=== PATIENT | female | born 1975 | race Caucasian/White ===

== ENCOUNTER → 2018-12-25 15:48 | Outpatient (CLI) | payer OTHER, SELFPAY ==
[2018-12-31 15:06] LABS: HPV APTIMA, High Risk Negative (Negative)
== END ==
PROVIDERS: Family Provider Family Medicine; PCP Family Medicine; Referring Provider Obstetrics & Gynecology; Visit Provider Obstetrics & Gynecology
DX: Z12.4 Encounter for screening for malignant neoplasm of cervix (principal)
CPT/HCPCS: 87624; 88175; G0145

== ENCOUNTER → 2019-02-07 10:13 | Outpatient (CLI) | payer OTHER, SELFPAY ==
--- NOTE | 2019-02-07 10:16 | BI_ITS ---
MAMMOGRAPHY - BILATERAL SCREENING REASON FOR EXAM: Female, 43 years old. Routine annual screening examination. PERTINENT HISTORY: Grandmother with breast cancer. Aunt with breast cancer. Prior right ultrasound-guided breast biopsy. TECHNIQUE: Digital bilateral breast cameron (3D mammographic acquisition) in the CC and MLO projections. 2-D mediolateral oblique (MLO) and craniocaudad (CC) views of both breasts were obtained. CAD: Full Field Digital Mammography with Computer Added Detection was performed. COMPARISON: Comparison is made with the prior examination dated October 27, 2014. FINDINGS: Breast Composition: The breasts are extremely dense, which lowers the sensitivity of mammography. There are no dominant masses or suspicious calcifications. Stable appearance of the 6 mm well-defined nodular density in the upper outer aspect of the right breast. A central notch is seen within it and this most likely represents a small benign appearing lymph node. No other significant abnormalities are identified. There has been no significant change since the prior study. BI/SCREEN MAMM (CAD) W/CAMERON BILAT IMPRESSION: Stable bilateral screening mammogram. Yearly follow-up mammogram recommended. (A) ASSESSMENT CATEGORY: BIRADS Category 2: Benign. A letter regarding these results will be sent to the patient by the facility within 30 days. Approximately 10% of breast cancers are not detected by mammography. A normal mammogram should not delay biopsy of a clinically suspicious abnormality. [id number] Electronically Signed: Luis Eduardo Haynes, at 8:38 EDT , Service support ,
== END ==
PROVIDERS: Family Provider Preventive Medicine Occupational Medicine; PCP Preventive Medicine Occupational Medicine; Referring Provider Obstetrics & Gynecology; Visit Provider Obstetrics & Gynecology
DX: Z12.31 Encounter for screening mammogram for malignant neoplasm of breast (principal)
CPT/HCPCS: 77063; 77067

== ENCOUNTER → 2019-09-16 12:39 | Outpatient (CLI) | payer OTHER, SELFPAY | PROVIDERS: PCP Preventive Medicine Occupational Medicine; Referring Provider Obstetrics & Gynecology; Visit Provider Obstetrics & Gynecology | DX: Z53.9 Procedure and treatment not carried out, unspecified reason (principal) ==

== ENCOUNTER 2019-10-08 09:02 | Day surgery (SDC) | payer OTHER, SELFPAY ==
[2019-10-02 11:07] LABS: Hematocrit 39.9 % (37-47); Hemoglobin 13.5 g/dL (12.0-15.0); Mean Corp Hgb Conc 33.8 g/dL (32-36); Mean Corpuscular Volume 94.5 fL (81-99); Mean Platelet Vol. 11.1 fl (6.2-12.0); Platelet Count 230 K/mm3 (150-450); RBC Distribution Width CV 12.3 % (11.6-14.6); RBC Distribution Width SD 42.3 fl (35.1-43.9); Red Blood Count 4.22 M/mm3 (4.2-5.4); White Blood Count 6.2 K/mm3 (4.4-11.0)
[2019-10-02 11:14] LABS: Prothrombin Time (Protime)PT. 12.6 SECONDS (11.7-14.9)
[2019-10-02 11:15] LABS: Partial Thromboplast Time 26.7 Seconds (24.1-36.2)
--- NOTE | 2019-10-08 07:33 | PCM.HPOB.BLA ---
- Problem List (1) Abnormal uterine bleeding (AUB) Status: Acute History and Physical Date of Admission: 10/08/19 Date: 10/02/2019 Name: GUERLINE PAUL Age: 44 Date of : 1975 HISTORY OF PRESENT ILLNESS: On 10/02/2019, Guerline Paul, a 44 year old female 1 0 1 0 1, presented for: -- Pre-Op -- Guerline is here for pre-op appt. PAT packet provided and consents are signed. Will discuss all further with Dr CRAIG. LMT as above. hx frequent, irregular menses in setting of cervical vs. endometrial polyp noted on US. jayesh ALLERGIES: NKDA MEDICATIONS HISTORY: Patient is also takin. No Meds REVIEW OF SYSTEMS: GENERAL - Denies fever, or chills SKIN - Denies skin changes EYES - Denies visual changes EARS - Denies difficulty hearing NOSE - Denies nasal congestion or bleeding MOUTH - Denies sore throat or difficulty swallowing NECK - Denies pain or swelling RESPIRATORY - Denies shortness of breath or wheezing CARDIOVASCULAR - Denies palpitations or chest pain GASTROINTESTINAL - Denies nausea, vomiting, diarrhea, constipation GENITOURINARY - Irregular bleeding MUSCULOSKELETAL - Denies joint or muscle pain NEUROLOGICAL - Denies localized numbness or weakness PSYCHIATRIC - Denies depression or anxiety ENDOCRINE - Denies heat or cold intolerance, weight loss or gain HEMATO-IMMUNOLOGIC - Denies excesive bleeding with cuts PAST HISTORY: Breast/Ovarian/Colon Cancers - Aunt had Breast Cancer approximately age 60-70 Infections - Chicken pox childhood Illnesses - none Accidents - no injuries of consequence History of Abnormal PAPS - Denies Hospitalizations - Childbirth chest flushing; SURGICAL HISTORY: 1. Moose Teeth Removal, 1993 MENSTRUAL HISTORY: LMP Known?- DefiniteAmount/Duration - 3 days, Regularity - regular, Frequency - monthly days, LMP - 09/11/19, Age Onset Menarche - 13 PAST PREGNANCIES: Total Pregnancies - 2; Full Term Pregnancies - 1; Premature - 0; Abortions, Induced - 0; Abortions, Spontaneous - 1; Ectopics - 0; Multiple Births - 0; Living Children - 1 FAMILY HISTORY: Father - Ischemic heart disease; Aunt - Carcinoma of breast; MaternalAunt - Age 66, Carcinoma of breast; MaternalGrandparent - Ischemic heart disease; MaternalGrandparent - Type 2 Diabetes; PaternalGrandparent - Ischemic heart disease; SOCIAL HISTORY: Alcohol Use - drinks occasionally Smoking - occasional--advised to quit Diet - no particular diet Lifestyle - Exercise - active Seat Belt Use - always Employer - [employer] Job Description - shipping Illicit Drug Use - denies use of street drugs Sexual Activity - Residence - lives with Hours Worked - 40 hours per week Spouse-Sig Other Name - Audie Spouse-Sig Other Occupation - self-emp - escavating Children Name(s) - Carisa Control - condoms PHYSICAL EXAMINATION BP- 110/88 Sitting, Right arm, regular cuff Temp- 98.4 Taken Orally Weight- 162.00 lbs Height- 66.50 inch BMI:25.81 CONSTITUTIONAL - NAD, well nourished, and well developed SKIN - No rash, lesions, or ulcers HEENT - normocephalic, atraumatic, sclerae anicteric LYMPH NODES - Palpation of lymph nodes in neck and groins within normal limits LUNGS - CTA x2 without wheezes, crackles or rales CARDIAC - Regular rate and rhythm without rubs, murmurs, or gallops ABDOMEN - Without hepatosplenomegaly, distention, masses, rebound, or guarding; normal bowel sounds; no hernias EXTREMITIES - No edema or calf tenderness NEUROLOGICAL - normal gait, normal balance, normal motor PSYCHIATRIC - A and O to time, place, person, mood and affect PAP 2019 NILM US 01/2019 UTERUS: 10.2 x 5.4 x 5.1cm. subserous fibroids seen measures 1.3 x 1.4 x 1.1cm and 1 x 1.3 x 1.1cm. ENDOMETRIAL ECHO: 5.9mm. RIGHT OVARY: 3.1 x 3 x 3.1cm. complex cystic area seen measures 2 x 1.3 x 2.1cm. LEFT OVARY: 2.6 x 2.8 x 3.3cm. two simple cysts seen measures less then 1cm. BLADDER: No bladder masses visualized. FREE FLUID: NONE. OTHER PERTINENT FINDINGS: small nabothian cysts seen in cx. Subserous fibroids seen in uterus. Left paratubal vs paraovarian cyst seen measures 2.4 x 2 x 2.5cm. Complex cystic area seen right ovary. ASSESSMENT: PLAN BY DIAGNOSIS: 1. Irregular Menstruation, unspecified US findings reviewed - suspicious for cervical polyp Hysteroscopy, dilation and curettage with Symphion polypectomy. I also offered her endometrial ablation as this time with review of indications/risks/benefits/alternatives and pt opts to proceed Procedural consents, anticipated hospital course, recovery reviewed Preop labs pending Preop packet reviewed and given NPO @ [facility] prior to procedure Essential Procedure Criteria Procedure Essential: Yes Criteria Note: On 08/04/2019 the [facility] [place] of Health ([facility]) Public Order signed by [facility] Director Mary Kate Jung M.D., regarding the Management of Non-Essential Surgeries and Procedures for the purpose of preserving Personal Protective Equipment (PPE) and critical hospital capacity and resources within [place] went into effect as of 08/05/2019 at 5:00PM. According to the [facility] Public Order: This action will remain in full force and effect until the State of Emergency declared by the Governor no longer exists or the Director of the [facility] rescinds or modifies this Order.. This [facility] order stated all non-essential or elective surgeries and procedures that utilize PPE should be delayed unless there is undue risk to the current or future health of a patient. After reviewing the aforementioned [facility] Public Order and the patients clinical case, I have determined that the scheduled procedure meets the criteria to go forward. Risk to Patient if Procedure Delayed: Presence of severe symptoms causing an inability to perform ADL's
[2019-10-08 09:43] VITALS: BP 122/76; PULSE 66; RESP 14; TEMP 36.9; O2SAT 99; BMI 25.3
[2019-10-08 09:55] LABS: Internal QC Validated? YES +Cl - CLEAR BKGD; Pregnancy, Urine Negative Negative
[2019-10-08] MEDS: Lactated Ringers 1,000 ML 125 ML IV (10:03)
--- NOTE | 2019-10-08 10:25 | ECC_PTH ---
PATIENT: DAMON HOWARD LOC: [facility] [place] U#:[id number] AGE/SX: 44/F ROOM: RE10/08/[address]: Dr. Kellee Miller MD : 1975 BED: DIS: 10/08/2019 SPEC #: [id number] RECD: 10/08/19 13:15 STATUS: VAUGHN EDWARD #: [id number] RESHMA: 10/08/19 10:[address]: Kellee Ybarra DEPT: SURGICAL PATHOLOGY RECD BY: Bebo Avina ENTERED: 10/09/19 09:01 SP TYPE: ECC ABHISHEK DR: Dr. Freeman Holder DO Tissues: A - Endocervical B - Endometrium, NOS Procedures: Surgery Specimen Level IV HEADER OPERATION: Hysteroscopy, D & C Symphion, endocervical curettage, Maribel PRE-OP DIAGNOSIS: Irregular menstruation TISSUE SUBMITTED: A - Endocervical curettings, B - Endometrial curettings MICROSCOPIC DIAGNOSIS A. Endocervix, curettings: Fragments of secretory endometrium. See comment. B. Endometrium, curettings: Fragments of secretory endometrium. AM:deepthi 10/13/19 COMMENT A. Endocervical tissue is not represented in the biopsy. Clinical correlation is suggested. Case has been reviewed in consultation with Dr. Taveras who concurs with the above diagnosis. IDC:ANGEL MICROSCOPIC DESCRIPTION Slides are reviewed. GROSS DESCRIPTION A - Received in fixative is one container labeled with the patient's name and designated endocervical curettings. The specimen consists of multiple irregular fragments of woods mucoid tissue that in aggregate measure 2 x 0.2 x 0.1 cm. The specimen is totally submitted in one cassette. B - Received in fixative is one container labeled with the patient's name and designated endometrial curettings. The specimen consists of multiple fragments of woods, hemorrhagic soft tissue that in aggregate measure 5 x 3 x 0.3 cm. The entire specimen is submitted in one cassette. / ANGEL:deepthi 10/09/19 TC:5 CPT: 19465 x2
--- NOTE | 2019-10-08 10:56 | DCINST_ITS ---
Discharge Diet: No Restrictions Discharge Activity: Return to Normal Activity, May not drive while taking narcotic pain medications., May Shower, - - No tub bath for 2 weeks, do not put anything in the vagina for 2 weeks May resume sexual activity in: 4 weeks Call your doctor if you observe: Fever of 101 or Higher, Inability to urinate, Inability to have a bowel movement, Using more than one pad per hour, Shortness of breath, Chest pain, Calf discomfort, Uncontrolled pain Additional Instructions: Your procedure went as planned today with hysteroscopy (looking inside the uterus), dilation and curettage (shaving the uterine lining) and endometrial ablation (heating the uterine lining) to address abnormal bleeding. Permanent sterilization such as vasectomy or tubal ligation to prevent is advised. following endometrial ablation is high risk with potential life threatening complications for mother and baby due to scarring of the uterus. Allergies/Adverse Reactions: Allergies No Known Allergies Allergy (Verified 10/01/19 09:16) Medications to take at Discharge NK 07/30/19 Primary Care Physician: Freeman Holder DO [Primary Care Provider] - Test Results: Test results from this visit will be discussed in further detail at your follow- up appointment, if applicable. Please Follow Up With: Kellee Hammond MD When: 4 weeks
[2019-10-08] MEDS: Lubricating Jelly 60 GM Tube 30 GM TOPICAL (11:10)
[2019-10-08 12:17] VITALS: BP 115/85; BP 122/76; PULSE 70; RESP 14; TEMP 35.9; O2SAT 100
[2019-10-08 12:21] VITALS: BP 120/83; BP 122/76; PULSE 61; RESP 14; O2SAT 100
[2019-10-08 12:25] VITALS: BP 121/89; BP 122/76; PULSE 68; RESP 14; O2SAT 100
[2019-10-08 12:30] VITALS: BP 122/76; BP 132/91; PULSE 56; RESP 14; TEMP 36.3; O2SAT 100
[2019-10-08 13:32] VITALS: BP 122/76
--- NOTE | 2019-10-08 23:55 | PCM.OPRPT ---
Problem List (1) Abnormal uterine bleeding (AUB) Status: Acute Report of Operation Date of Procedure: 10/08/19 Pre-Operative Diagnosis: Abnormal uterine bleeding Post-Operative Diagnosis: Abnormal uterine bleeding Surgery/Procedure Performed:: Hysteroscopy, dilation and curettage, Maribel Endometrial ablation Description of Surgical Findings:: normal appearing uterus and tubal ostia bilaterally Type of Anesthesia:: Local MAC Anesthesiologist: Nigel Hudson Estimated Blood Loss (mL): 10 Description of Procedure: Patient was brought to the operating room and sign in performed. She was placed in the dorsal supine position and induced under MAC. She was repositioned into dorsolithotomy and examination under anesthesia performed. The perineum were was prepped and draped in sterile fashion. Straight catheterization of the bladder performed. A bivalve speculum was placed vaginally the cervix grasped at the anterior cervical lip using a single-tooth tenaculum. Paracervical block was performed using 1% lidocaine. The uterus sounded to 9 cm. The cervix was subsequently dilated and hysteroscopy performed with the Symphion system. An anterior wall polyp was noted and resected using the Symphion system. Sharp curettage was performed. Maribel endometrial ablation system was introduced into the uterine cavity, array expanded and cycle completed. The ablation array was compressed and the device removed. Hysteroscopy was again performed demonstrating global endometrial ablation. The procedure was complete. The hysteroscope was removed. The tenaculum was removed from the cervix and the tenaculum site hemostatic. Sponge counts were correct x2. The patient was awakened, transferred to the recovery room without complication and tolerated the procedure well. - Complications None - Admit VTE Documentation VTE Present on Admission: No VTE Mechan Device Prophylaxis: [facility] [place] [place] Pharm Prophylaxis ordered?: No
== END 2019-10-08 13:33 | disposition home or self-care (01) ==
LOC: SDC 09:03 → AC 09:04
PROVIDERS: Anesthesiology; PCP Preventive Medicine Occupational Medicine; Referring Provider Obstetrics & Gynecology; Visit Provider Obstetrics & Gynecology
PROC: 0UB98ZZ Excision of Uterus, Via Natural or Artificial Opening Endoscopic (ICD-10-PCS; CPT 58558; principal; 2019-10-08 10:10)
DX: N84.0 Polyp of corpus uteri (principal); N92.6 Irregular menstruation, unspecified; K58.9 Irritable bowel syndrome, unspecified; F17.200 Nicotine dependence, unspecified, uncomplicated
CPT/HCPCS: 58563; 36415; 81025; 85027; 85610; 85730; 86850; 86900; 86901; 87635; 88305; G2023; J7120; U0004

== ENCOUNTER → 2023-07-30 | Outpatient (CLI) | payer OTHER, SELFPAY ==
--- NOTE | 2023-07-30 16:00 | RAD_ITS ---
STUDY: X-RAY - RIGHT KNEE REASON FOR EXAM: Female, 48 years old. Right knee injury TECHNIQUE: 4 view(s) of the knee. COMPARISON: None. FINDINGS: Bone island noted within the distal femur. No evidence for acute fracture. No lytic destructive changes.. Normal visualized proximal tibia and fibula. Normal proximal tibiofibular articulation. Mildly narrowed at medial femorotibial compartment. Mildly narrowed lateral femorotibial compartment. Normal patellofemoral articulation. The soft tissue structures are unremarkable. RAD/Knee 4 or More Views IMPRESSION: Degenerative changes. No acute fracture or other significant bony pathology Electronically Signed: Austin Self MD at 16:57 EDT Reading Location ID and State: [facility] / [place] Tel , Service support ,
== END | disposition home or self-care (01) ==
LOC: MTRAD 15:56
PROVIDERS: PCP Family Medicine; Referring Provider Family Medicine; Visit Provider Family Medicine
DX: M25.561 Pain in right knee (principal); G89.29 Other chronic pain
CPT/HCPCS: 73564

== ENCOUNTER → 2023-08-01 | Outpatient (CLI) | payer OTHER, SELFPAY ==
[2023-08-01 10:17] LABS: Absolute Lymphocyte Count 1.93 X10^3/uL (0.83-4.51); Basophil# 0.06 X10^3/uL; Basophil% 1.1 % (0-1); Eosinophil# 0.08 X10^3/uL; Eosinophils% 1.4 % (0-5); Hematocrit 41.6 % (37-47); Hemoglobin 13.7 g/dL (12.0-15.0); Lymphocyte # 1.93 X10^3/ul (0.83-4.51); Lymphocyte % 34.9 % (19-41); Mean Corp Hgb Conc 32.9 g/dL (32-36); Mean Corpuscular Hgb 31.6 pg (27.0-32.0); Mean Corpuscular Volume 95.9 fL (81-99); Mean Platelet Vol. 10.7 fl (6.2-12.0); Monocyte# 0.46 X10^3/uL; Monocyte% 8.3 % (0-10); NRBC Flagged by Analyzer 0 % (0-5); Neutrophil # 2.99 X10^3/uL (2.7-7.7); Neutrophil % 54.1 % (47-70); Platelet Count 250 K/mm3 (150-450); RBC Distribution Width CV 12.3 % (11.6-14.6); RBC Distribution Width SD 43.6 fl (35.1-43.9); Red Blood Count 4.34 M/mm3 (4.2-5.4); White Blood Count 5.5 K/mm3 (4.4-11.0)
[2023-08-01 10:59] LABS: ALB/GLOB Ratio 0.9 RATIO (0.9-2.4); AST(SGOT) 13 U/L (15-37); Alanine Aminotransfer ALT/SGPT 27 U/L (13-56); Albumin, Serum 3.3 g/dL (3.2-5.0); Alkaline Phosphatase 68 U/L (45-117); Anion Gap 6 (5-15); BUN 9 mg/dL (7-18); BUN/Creat Ratio 10.8 RATIO (10-20); Calcium,Total 8.6 mg/dL (8.5-10.1); Chloride 106 mmol/L (98-107); Cholesterol 180 mg/dL (200); Creatinine, Serum 0.84 mg/dL (0.55-1.02); EST Glomerular Filtration Rate 77 mL/min (>60); Est Glom Filt Rate - Afr Amer 93 mL/min (>60); Globulin 3.6 g/dL (2.2-4.2); Glucose 88 mg/dL (74-106); High Density Lipoprotein 59 mg/dL; Potassium 3.8 mmol/L (3.5-5.1); Protein, Total 6.9 g/dL (6.4-8.2); Sodium Level 139 mmol/L (136-145); Thyroid Stim Hormone (TSH) 1.17 uIU/mL (0.358-3.74); Triglycerides 101 mg/dL; Very Low Density Lipoprotein 20 mg/dL (5-40)
== END | disposition home or self-care (01) ==
LOC: MTLAB 09:34
PROVIDERS: PCP Family Medicine; Referring Provider Family Medicine; Visit Provider Family Medicine
DX: Z00.00 Encounter for general adult medical examination without abnormal findings (principal); Z13.1 Encounter for screening for diabetes mellitus; Z13.220 Encounter for screening for lipoid disorders; E55.9 Vitamin D deficiency, unspecified; Z87.891 Personal history of nicotine dependence
CPT/HCPCS: 36415; 80053; 80061; 82306; 84443; 85025

== ENCOUNTER 2023-09-11 09:30 | Outpatient (RCR) | payer OTHER, SELFPAY ==
--- NOTE | 2023-08-07 14:02 | HP.PTDCSUM_ITS ---
Discharge Summary D/C summary: It has been my pleasure to treat DAMON HOWARD referred by Guero Olivares MD, with the diagnosis of R knee pain for a total of 1 visit(s). Discharge Date: Please see the following information for a summary of their discharge status. Pain R knee: Pain Intensity (Out of 10): 4 Goals Goal 1:: Decrease R knee pain x 50% to aid with sleep Goal 2:: Increase R knee strength x 5-10 #F to aid with stair negotiation Goal 3:: I with HEP Plan Plan: Issue and instruct pt on HEP of R knee and core strengthening ex's over 3- 4 Rx's D/C Information d/c sentence: If there are questions or concerns regarding this patient's physical therapy, please feel free to call me at [phone]. Thank you for the referral of this patient. Sincerely, Carlo Wilder, PT, ATC Balance/Gait/Functional tests Balance/Special Test Scores Lower Extremity Functional Score: 51
--- NOTE | 2023-09-11 10:14 | HP.PTDCSUM ---
Discharge Summary D/C summary: It has been my pleasure to treat DAMON HOWARD referred by Guero Olivares MD, with the diagnosis of R knee pain for a total of 3 visit(s). Discharge Date: 09/11/23 Please see the following information for a summary of their discharge status. Subjective Subjective: I dont have any pain now Pain R knee: Pain Intensity (Out of 10): 0 Overall Improvement % Improvement: 95 Objective Objective/Function: Pt reports she has no pain and is I with her ex's. No further Rx is needed at this time Goals Goal 1:: Decrease R knee pain x 50% to aid with sleep Goal Progress: Goal Met Goal 2:: Increase R knee strength x 5-10 #F to aid with stair negotiation Goal Progress: Not assessed Goal 3:: I with HEP Goal Progress: Goal Met Plan Plan: Discharge to HEP D/C Information Discharge Comments: Pt is pain free and I with HEP. Pt is discharged d/c sentence: If there are questions or concerns regarding this patient's physical therapy, please feel free to call me at [phone]. Thank you for the referral of this patient. Sincerely, Carlo Wilder, PT, ATC Balance/Gait/Functional tests Balance/Special Test Scores Lower Extremity Functional Score: 51 Improvement % Improvement: 95
== END 2023-09-11 19:00 | disposition home or self-care (01) ==
LOC: PT 09:30
PROVIDERS: PCP Family Medicine; Referring Provider Family Medicine; Visit Provider Family Medicine
DX: M25.561 Pain in right knee (principal)
CPT/HCPCS: 97110; 97161

== ENCOUNTER → 2024-10-08 | Outpatient (CLI) | payer OTHER, SELFPAY ==
--- NOTE | 2024-10-08 12:39 | RAD_ITS ---
PROCEDURE: FOOT MIN 3 VIEWS 10/08/2024 REASON FOR EXAM: LEFT HEEL INJURY TECHNIQUE: 3 views of the left foot. COMPARISON: None available FINDINGS: No fracture or dislocation. The joint spaces appear within limits. No osseous lesion identified. The soft tissues appear within limits. RAD/Foot min 3 Views IMPRESSION: The study appears within limits. Reading Location: [id number]
[2024-10-08 15:33] LABS: Absolute Lymphocyte Count 1.92 X10^3/uL (0.83-4.51); Absolute Neutrophil Count 4.3 X10^3/uL (2.0-7.7); Basophil# 0.04 X10^3/uL; Basophil% 0.6 % (0-1); Eosinophil# 0.06 X10^3/uL; Eosinophils% 0.9 % (0-5); Hematocrit 41.6 % (37-47); Hemoglobin 13.9 g/dL (12.0-15.0); Lymphocyte # 1.92 X10^3/ul (0.83-4.51); Lymphocyte % 28.8 % (19-41); Mean Corp Hgb Conc 33.4 g/dL (32-36); Mean Corpuscular Hgb 31.7 pg (27.0-32.0); Mean Platelet Vol. 11.4 fl (6.2-12.0); Monocyte# 0.39 X10^3/uL; Monocyte% 5.8 % (0-10); NRBC Flagged by Analyzer 0 % (0-5); Neutrophil # 4.25 X10^3/uL (2.7-7.7); Neutrophil % 63.8 % (47-70); Platelet Count 223 K/mm3 (150-450); RBC Distribution Width CV 12.4 % (11.6-14.6); RBC Distribution Width SD 43.5 fl (35.1-43.9); Red Blood Count 4.38 M/mm3 (4.2-5.4); White Blood Count 6.7 K/mm3 (4.4-11.0)
[2024-10-08 15:56] LABS: ALB/GLOB Ratio 1.3 RATIO (0.9-2.4); AST(SGOT) 14 U/L (<=31); Alanine Aminotransfer ALT/SGPT 8 U/L (<=34); Albumin, Serum 4.2 g/dL (3.5-5.0); Alkaline Phosphatase 76 U/L (35-104); Anion Gap 11 (5-15); BUN 5 mg/dL (4-19); Calcium,Total 8.9 mg/dL (7.6-11.0); Carbon Dioxide 25.5 mmol/L (21.0-32.0); Chloride 101 mmol/L (98-108); Cholesterol 245 mg/dL (<=200); Creatinine, Serum 0.74 mg/dL (0.70-1.20); EST Glomerular Filtration Rate 98 (>60); Globulin 3.2 g/dL (2.2-4.2); Glucose 86 mg/dL (70-99); High Density Lipoprotein 64 mg/dL; Low Density Lipoprotein Calc. 148 mg/dL; Potassium 3.7 mmol/L (3.3-5.1); Protein, Total 7.4 g/dL (5.9-8.4); Sodium Level 137 mmol/L (133-145); Total Bilirubin 0.54 mg/dL (0.00-1.30); Triglycerides 167 mg/dL; Very Low Density Lipoprotein 33 mg/dL (5-40); cholesterol:hdl ratio screen 3.83
== END | disposition home or self-care (01) ==
PROVIDERS: PCP Family Medicine; Referring Provider Family Medicine; Visit Provider Family Medicine
DX: Z00.00 Encounter for general adult medical examination without abnormal findings (principal); M79.672 Pain in left foot; Z13.1 Encounter for screening for diabetes mellitus; Z13.220 Encounter for screening for lipoid disorders
CPT/HCPCS: 36415; 73630; 80053; 80061; 85025